=== PATIENT | male | born 1995 | race Two or more races ===

== ENCOUNTER 2016-07-01 21:54 | Emergency (ER) | payer OTHER ==
[2016-07-02] MEDS ORDERED: HYDROCODONE/ACETAMINOPHEN 5/325MG TABLET ONE (01:12)
[2016-07-02] MEDS ORDERED: IBUPROFEN 800 MG TABLET ONE (01:12)
--- NOTE | 2016-07-02 06:52 | RAD ---
HIP - LEFT 2 VW + AP PELVIS HISTORY: Fell 6 feet. COMPARISONS: None. FINDINGS: An AP view the pelvis was performed with AP and frog-leg lateral views of the left hip demonstrating grossly intact osseous structures. The hip joint spaces are well-maintained and appear to be symmetric. The osseous pelvis is normal. No focal soft tissue abnormalities are seen. IMPRESSION: 1. Negative views of the pelvis and left hip.
== END 2016-07-02 01:46 | disposition home or self-care (01) ==
LOC: ED 21:54
DX: S70.02XA Contusion of left hip, initial encounter (principal); W17.89XA Other fall from one level to another, initial encounter; Y93.H2 Activity, gardening and landscaping
CPT/HCPCS: 73502; 99283 ×2; A9270 ×2